=== PATIENT | female | born 1960 | race American Indian/Alaskan Native ===

== ENCOUNTER 2019-01-20 20:10 | Emergency (ER) | payer OTHER ==
--- NOTE | 2019-01-20 21:28 | Event Note ---
ED Screening Note Date of service: 01/20/19 Time: 21:24 ED Screening Note: This is a 58 y.o. F. that presents with generalized muscle cramps since yesterday. Patient reports cramping is worse today. PMH of DM2 & HTN. PCP Dr. Matos This initial assessment/diagnostic orders/clinical plan/treatment(s) is/are subject to change based on patients health status, clinical progression and re- assessment by fellow clinical providers in the ED. Further treatment and workup at subsequent clinical providers discretion. Patient/guardian urged not to elope from the ED as their condition may be serious if not clinically assessed and managed. Initial orders include: Labs
[2019-01-20 22:06] LABS: Basophils # (Auto) 0.1 K/mm3 (0.0-0.1); Basophils % (Auto) 0.9 % (0.0-1.8); Eosinophils # (Auto) 0.1 K/mm3 (0.0-0.4); Hematocrit 37.7 % (30.3-42.9); Lymphocytes # (Auto) 1.6 K/mm3 (1.2-5.4); Lymphocytes % (Auto) 15.6 % (13.4-35.0); Mean Corpuscular HGB Conc 35 % (30-34); Mean Corpuscular Volume 85 fl (79-97); Monocytes # (Auto) 0.6 K/mm3 (0.0-0.8); Monocytes % (Auto) 5.9 % (0.0-7.3); Platelet Count 247 K/mm3 (140-440); Red Blood Count 4.41 M/mm3 (3.65-5.03)
[2019-01-20 22:25] LABS: Albumin 3.7 g/dL (3.9-5)
[2019-01-21] MEDS ORDERED: NACL 0.9% 1000 ML 1,000 ML IV ONE (04:41)
[2019-01-21] MEDS ORDERED: NACL 0.9% 1000 ML 1,000 ML ONE (04:44)
--- NOTE | 2019-01-21 05:31 | Emergency Department Report ---
ED General Adult HPI - General Chief complaint: Abdominal Pain Stated complaint: ABD/LEG CRAMPS Time Seen by Provider: 01/20/19 21:23 Source: patient Mode of arrival: Ambulatory Limitations: No Limitations - History of Present Illness Initial comments: 58-year-old female with a past medical history CHF in the s, diabetes, and hypertension presents to the Hospital complaining of generalized cramping that started earlier today. Symptoms started while at work. 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 I initially had spasms of her hands and was unable to unclear and sure hands without effort. Then she states spasms spread to her arms, legs, with intermittent cramps of her abdomen. No complaints of shortness of breath, nausea, vomiting, or diarrhea. She's also states she's been trying to drink lots of water today a Powerade here and there. Patient was picked up by EMS. She apparently drank pickle juice and received IV fluids prior to arrival with improvement in her cramps. The patient takes Lasix 40 mg, lisinopril, amlodipine, simvastatin, and insulin. She states that her CHF was diagnosed in and she denies any recent exacerbation and reports it as a previous problem. She has known renal insufficiency diagnosed by her doctor in July. She is supposed to follow up with nephrology but st ates that that she never received a phone call from their office in regards to a follow-up appointment. Severity scale (0 -10): 0 - Related Data Allergies Allergy/AdvReac Type Severity Reaction Status Date / Time No Known Allergies Allergy Verified 01/21/19 04:43 ED Review of Systems ROS: Stated complaint: ABD/LEG CRAMPS Other details as noted in HPI Comment: All other systems reviewed and negative ED Past Medical Hx - Past Medical History Previous Medical History?: Yes Hx Hypertension: Yes Hx Congestive Heart Failure: Yes Hx Diabetes: Yes Hx Renal Disease: Yes (renal insufficiency) - Surgical History Additional Surgical History: gallstones 93 - Social History Smoking Status: Never Smoker ED Physical Exam - General Limitations: No Limitations - Other Other exam information: General: No limitations, patient is alert in no acute distress Head exam: Atraumatic, normocephalic Eyes exam: Normal appearance, pupils equal reactive to light, extraocular movements intact ENT: Moist mucous membrane, normal oropharynx Neck exam: Normal inspection, full range of motion, no meningismus nontender Respiratory exam: Clear to auscultation bilateral, no wheezes, rales, crackles Cardiovascular: Normal rate and rhythm, normal heart sounds Abdomen: Soft, nondistended, and nontender, with normal bowel sounds, no rebound, or guarding Extremity: Full range of motion normal inspection no deformity Back: Normal Inspection, full range of motion, no tenderness Neurologic: Alert, oriented x3, cranial nerves intact, no motor or sensory deficit Psychiatric: normal affect, normal mood Skin: Warm, dry, intact ED Course Vital Signs 01/20/19 01/21/19 01/21/19 21:24 00:36 00:37 Temperature 98.2 F 98.1 F Pulse Rate 96 H 88 87 Respiratory 18 13 16 Rate Blood Pressure 131/87 Blood Pressure 163/83 [Left] O2 Sat by Pulse 98 97 96 Oximetry 01/21/19 01/21/19 01/21/19 00:45 01:00 01:15 Temperature Pulse Rate 85 75 75 Respiratory 18 15 13 Rate Blood Pressure 163/83 130/64 130/64 Blood Pressure [Left] O2 Sat by Pulse 92 94 95 Oximetry 01/21/19 01/21/19 01/21/19 01:31 01:45 02:01 Temperature Pulse Rate 84 99 H 70 Respiratory 14 17 13 Rate Blood Pressure 163/83 163/83 153/69 Blood Pressure [Left] O2 Sat by Pulse 93 97 99 Oximetry 01/21/19 01/21/19 01/21/19 02:15 02:31 02:45 Temperature Pulse Rate 71 73 78 Respiratory 16 13 15 Rate Blood Pressure 153/69 153/69 153/69 Blood Pressure [Left] O2 Sat by Pulse 97 98 96 Oximetry 01/21/19 01/21/19 01/21/19 03:31 04:00 05:01 Temperature Pulse Rate 79 60 67 Respiratory 17 12 16 Rate Blood Pressure 148/70 130/64 155/72 Blood Pressure [Left] O2 Sat by Pulse 98 96 98 Oximetry 01/21/19 06:01 Temperature Pulse Rate 55 L Respiratory 12 Rate Blood Pressure 135/66 Blood Pressure [Left] O2 Sat by Pulse 98 Oximetry ED Medical Decision Making - Lab Data Result diagrams: 01/20/19 21:46 01/20/19 21:46 Lab Results 01/20/19 01/20/19 01/20/19 Range/Units 21:46 21:46 21:46 WBC 10.2 (4.5-11.0) K/mm3 RBC 4.41 (3.65-5.03) M/mm3 Hgb 13.0 (10.1-14.3) gm/dl Hct 37.7 (30.3-42.9) % MCV 85 (79-97) fl MCH 30 (28-32) pg MCHC 35 H (30-34) % RDW 14.0 (13.2-15.2) % Plt Count 247 (140-440) K/mm3 Lymph % (Auto) 15.6 (13.4-35.0) % [place] % (Auto) 5.9 (0.0-7.3) % Eos % (Auto) 1.0 (0.0-4.3) % Baso % (Auto) 0.9 (0.0-1.8) % Lymph # 1.6 (1.2-5.4) K/mm3 [place] # 0.6 (0.0-0.8) K/mm3 Eos # 0.1 (0.0-0.4) K/mm3 Baso # 0.1 (0.0-0.1) K/mm3 Seg Neutrophils % 76.6 H (40.0-70.0) % Seg Neutrophils # 7.8 H (1.8-7.7) K/mm3 Sodium 136 L (137-145) mmol/L Potassium 4.3 (3.6-5.0) mmol/L Chloride 99.4 (98-107) mmol/L Carbon Dioxide 25 (22-30) mmol/L Anion Gap 16 mmol/L BUN 31 H (7-17) mg/dL Creatinine 2.3 H (0.7-1.2) mg/dL Estimated GFR 26 ml/min BUN/Creatinine Ratio 13 % Glucose 200 H (65-100) mg/dL Calcium 9.0 (8.4-10.2) mg/dL Magnesium 2.20 (1.7-2.3) mg/dL Total Bilirubin 0.30 (0.1-1.2) mg/dL AST 19 (5-40) units/L ALT 18 (7-56) units/L Alkaline Phosphatase 141 H (35-129) units/L Total Creatine Kinase 453 H (30-135) units/L Total Protein 7.8 (6.3-8.2) g/dL Albumin 3.7 L (3.9-5) g/dL Albumin/Globulin Ratio 0.9 % - Medical Decision Making She is on a statin and no signs of rhabdomyolysis based on CK. Symptoms also improved prior to my evaluation with supplemental oral and IV hydration that included electrolytes. Patient does have renal insufficiency with normal potassium and bicarbonate with a history of chronic renal insufficiency in the past. Baseline creatinine is unknown at this time. After additional 1 L IV hydration patient will be discharged home and recommended to follow up with nephrology for further workup. - Differential Diagnosis dehydration, muscle cramps, electrolyte abnormality, rhabdo Critical Care Time: No Critical care attestation.: If time is entered above; I have spent that time in minutes in the direct care of this critically ill patient, excluding procedure time. ED Disposition Clinical Impression: Muscle cramps, Dehydration, Renal insufficiency Disposition: - TO HOME OR SELFCARE Is pt being admited?: No Does the pt Need Aspirin: No Condition: Stable Instructions: Dehydration (ED), Muscle Cramp (ED), Impaired Kidney Function (ED) Additional Instructions: Follow up with your doctor or the clinic/doctor provided. Return if symptoms worsen as indicated by your discharge instructions Referrals: ANABELL ROSAS, [Staff Physician] - 3-5 Days (Kidney specialist) your, primary care doctor [Other] - 3-5 Days
[2019-01-21 06:03] VITALS: BP 135/66
== END 2019-01-21 06:27 | disposition home or self-care (01) ==
LOC: ED 20:10
DX: R25.2 Cramp and spasm (principal); E86.0 Dehydration; N28.9 Disorder of kidney and ureter, unspecified; I11.0 Hypertensive heart disease with heart failure; I50.9 Heart failure, unspecified; E11.9 Type 2 diabetes mellitus without complications
CPT/HCPCS: 36415; 80053; 82550; 83735; 85025; J7030; 96360; 96361